=== PATIENT | male | born 1970 | race African-American/Black ===

== ENCOUNTER 2019-12-21 13:28 | Inpatient (IN) | payer OTHER ==
[2019-12-21] MEDS ORDERED: SODIUM CHLORIDE 0.9% 1,000 ML IV STA ×4 (13:35→14:55)
[2019-12-21] MEDS ORDERED: LORazepam 2 MG/ML INJ IV STA (13:35)
[2019-12-21] MEDS ORDERED: hydrALAZINE HCL 20 MG/ML 1 ML VIAL IVP STA ×2 (13:42→18:02)
[2019-12-21 14:21] LABS: Basophils # (A) 0.2 k/uL (0-0.2); Basophils % (A) 3 %; Eosinophils % (A) 1 %; HCT 47.2 % (39.0-53.0); HGB 15.9 gm/dL (13.0-17.5); Lymphocytes # (A) 0.8 k/uL (1.0-4.8); Lymphocytes % (A) 14 %; MCH 32.3 pg (25.0-35.0); MCHC 33.6 g/dL (31.0-37.0); MCV 96.2 fL (80.0-100.0); Mean Platelet Volume 8.4; Monocytes # (A) 0.4 k/uL (0-1.0); Monocytes % (A) 8 %; Neutrophils # (A) 3.9 k/uL (1.3-7.7); Neutrophils % (A) 71 %; Platelet Count 195 k/uL (150-450); RBC 4.91 m/uL (4.30-5.90); WBC 5.6 k/uL (3.8-10.6)
[2019-12-21 14:36] LABS: AST 235 U/L (17-59); African American GFR (CKD) >90 (>60 ml/min/1.73 sqM); Albumin 5.3 g/dL (3.5-5.0); Alcohol <10 mg/dL; Alkaline Phosphatase 101 U/L (38-126); Anion Gap 22 mmol/L; Blood Urea Nitrogen 10 mg/dL (9-20); Calcium 9.6 mg/dL (8.4-10.2); Carbon Dioxide 19 mmol/L (22-30); Chloride 93 mmol/L (98-107); Creatine Kinase 725 U/L (55-170); Glucose 198 mg/dL (74-99); Lipase 90 U/L (23-300); Magnesium 1.1 mg/dL (1.6-2.3); Non-African American GFR(CKD) >90 (>60 ml/min/1.73 sqM); Sodium 134 mmol/L (137-145); Total Bilirubin 1.1 mg/dL (0.2-1.3); Total Protein 9.8 g/dL (6.3-8.2)
--- NOTE | 2019-12-21 14:36 | CT ---
EXAMINATION TYPE: CT brain wo con DATE OF EXAM: 12/21/2019 HISTORY: Possible seizure CT DLP: 1099.4 mGycm. Automated Exposure Control for Dose Reduction was Utilized. TECHNIQUE: CT scan of the head is performed without contrast. COMPARISON: None. FINDINGS: There is no acute intracranial hemorrhage or midline shift identified. There is diffuse v entricular and sulcal prominence consistent with diffuse age-related cerebral atrophy. There is low- attenuation in the periventricular white matter consistent with chronic small vessel ischemic change. The globes are intact and the visualized sinuses are clear. The calvarium is intact. Some vascular calcification distal internal carotid arteries bilaterally is present. IMPRESSION: No acute intracranial hemorrhage or midline shift. There is mild diffuse age-related ce rebral atrophy and chronic small vessel ischemic change noted.
[2019-12-21 14:42] LABS: Amphetamine Screen,Urine Not Detected (NotDetected); Barbiturate Screen,Urine Not Detected (NotDetected); Benzodiazepines Screen,Urine Not Detected (NotDetected); Cocaine Screen,Urine Not Detected (NotDetected); Methadone Screen, Urine Not Detected (NotDetected); Opiate Screen,Urine Detected (NotDetected); Oxycodone Screen, Urine Not Detected (NotDetected); Phencyclidine Screen,Urine Not Detected (NotDetected); Tricyclic Antidepressant,Urine Not Detected (NotDetected); Urn Cannabinoid Scrn Not Detected (NotDetected)
--- NOTE | 2019-12-21 14:45 | ED ---
General Adult HPI - General Chief complaint: Syncope Stated complaint: High BP Time Seen by Provider: 12/21/19 13:28 Source: patient, EMS, RN notes reviewed, old records reviewed Mode of arrival: EMS Limitations: no limitations - History of Present Illness Initial comments: This is a 49-year-old male with a history of substance abuse history of hyperten ambika was brought in by EMS after he was apparently fell in the bathroom at a place using it. There is question whether in seizure though no seizure activity was witnessed. Patient complains of some mild lower back pain but denies any other injury no head neck pain no pain in his extremities no loss of function. He's not sure what exactly happened however. He does admit to using alcohol and possibly being in withdrawal at this time.patient is on blood pressure medication he ran out over a month ago he was found be tachycardic and hypertensive per paramedics. - Related Data Home Medications Medication Instructions Recorded Confirmed No Known Home Medications 12/21/19 12/21/19 Allergies Allergy/AdvReac Type Severity Reaction Status Date / Time lisinopril Allergy Swelling Verified 12/21/19 14:48 Review of Systems ROS Statement: Those systems with pertinent positive or pertinent negative responses have been documented in the HPI. ROS Other: All systems not noted in ROS Statement are negative. Past Medical History Past Medical History: Hyperlipidemia, Hypertension Additional Past Medical History / Comment(s): panceratitis History of Any Multi-Drug Resistant Organisms: None Reported Past Surgical History: No Surgical Hx Reported Past Anesthesia/Blood Transfusion Reactions: No Reported Reaction Past Psychological History: No Psychological Hx Reported Smoking Status: Current every day smoker Past Alcohol Use History: Abuse Past Drug Use History: None Reported - Past Family History Mother Family Medical History: Hypertension Brother(s) Family Medical History: Diabetes Mellitus, Hypertension Sister(s) Family Medical History: Hypertension General Exam - General Exam Comments Initial Comments: is a well-developed well-nourished awake alert oriented 3 male Zirconia Coma Scale of 15 Limitations: no limitations General appearance: alert, in no apparent distress Head exam: Present: normocephalic, normal inspection, other (small abrasion /laceration to the left of midlinechin just below the vermilion border the left lip. No active bleeding no through and through injury no suture repair indicated.) Eye exam: Present: normal appearance, PERRL, EOMI. Absent: scleral icterus, conjunctival injection, periorbital swelling ENT exam: Present: normal exam, mucous membranes moist Neck exam: Present: normal inspection, full ROM, other (no stridor JVD or bruits). Absent: tenderness, meningismus, lymphadenopathy Respiratory exam: Present: normal lung sounds bilaterally. Absent: respiratory distress, wheezes, rales, rhonchi, stridor Cardiovascular Exam: Present: normal rhythm, tachycardia, normal heart sounds. Absent: systolic murmur, diastolic murmur, rubs, gallop, clicks GI/Abdominal exam: Present: soft, normal bowel sounds. Absent: distended, tenderness, guarding, rebound, rigid Extremities exam: Present: normal inspection, full ROM, normal capillary refill. Absent: tenderness, pedal edema, joint swelling, calf tenderness Back exam: Present: normal inspection Neurological exam: Present: alert, oriented X3, CN II-XII intact Psychiatric exam: Present: normal affect, normal mood Skin exam: Present: warm, dry, intact, normal color. Absent: rash Course Vital Signs 12/21/19 12/21/19 12/21/19 13:30 14:50 15:31 Temperature 99.7 F H 99 F Pulse Rate 128 H 108 H 110 H Respiratory 18 18 18 Rate Blood Pressure 234/119 147/86 164/87 O2 Sat by Pulse 95 96 98 Oximetry - Reevaluation(s) Reevaluation #1: 12/21/19 15:38 The patient appears be resting comfortably on repeat evaluations. 12/21/19 15:39 patient's heart rate and blood pressure have improved EKG Findings - EKG Results: EKG: interpreted by [facility], sinus rhythm (sinus tachycardia rate 125. Interval 140 QRS duration 86 QT since QTC 334/482 possible left atrial enlargement LVH noted) Medical Decision Making - Lab Data Result diagrams: 12/21/19 13:46 12/21/19 13:46 Lab Results 12/21/19 12/21/19 12/21/19 Range/Units 13:46 13:46 13:46 WBC 5.6 (3.8-10.6) k/uL RBC 4.91 (4.30-5.90) m/uL Hgb 15.9 (13.0-17.5) gm/dL Hct 47.2 (39.0-53.0) % MCV 96.2 (80.0-100.0) fL MCH 32.3 (25.0-35.0) pg MCHC 33.6 (31.0-37.0) g/dL RDW 13.0 (11.5-15.5) % Plt Count 195 (150-450) k/uL MPV 8.4 Neutrophils % 71 % Lymphocytes % 14 % Monocytes % 8 % Eosinophils % 1 % Basophils % 3 % Neutrophils # 3.9 (1.3-7.7) k/uL Lymphocytes # 0.8 L (1.0-4.8) k/uL Monocytes # 0.4 (0-1.0) k/uL Eosinophils # 0.0 (0-0.7) k/uL Basophils # 0.2 (0-0.2) k/uL Sodium 134 L (137-145) mmol/L Potassium 3.9 (3.5-5.1) mmol/L Chloride 93 L (98-107) mmol/L Carbon Dioxide 19 L (22-30) mmol/L Anion Gap 22 mmol/L BUN 10 (9-20) mg/dL Creatinine 0.66 (0.66-1.25) mg/dL Est GFR (CKD-EPI)AfAm >90 (>60 ml/min/1.73 sqM) Est GFR (CKD-EPI)NonAf >90 (>60 ml/min/1.73 sqM) Glucose 198 H (74-99) mg/dL Plasma Lactic Acid Robert (0.7-2.0) mmol/L Calcium 9.6 (8.4-10.2) mg/dL Magnesium 1.1 L (1.6-2.3) mg/dL Total Bilirubin 1.1 (0.2-1.3) mg/dL AST 235 H (17-59) U/L ALT 108 H (4-49) U/L Alkaline Phosphatase 101 (38-126) U/L Creatine Kinase 725 H (55-170) U/L Troponin I (0.000-0.034) ng/mL Total Protein 9.8 H (6.3-8.2) g/dL Albumin 5.3 H (3.5-5.0) g/dL Lipase 90 (23-300) U/L Urine Opiates Screen Detected H (NotDetected) Ur Oxycodone Screen Not Detected (NotDetected) Urine Methadone Screen Not Detected (NotDetected) Ur Propoxyphene Screen Not Detected (NotDetected) Ur Barbiturates Screen Not Detected (NotDetected) U Tricyclic Antidepress Not Detected (NotDetected) Ur Phencyclidine Scrn Not Detected (NotDetected) Ur Amphetamines Screen Not Detected (NotDetected) U Methamphetamines Scrn Not Detected (NotDetected) U Benzodiazepines Scrn Not Detected (NotDetected) Urine Cocaine Screen Not Detected (NotDetected) U Marijuana (THC) Screen Not Detected (NotDetected) Serum Alcohol <10 mg/dL 12/21/19 12/21/19 Range/Units 13:46 13:46 WBC (3.8-10.6) k/uL RBC (4.30-5.90) m/uL Hgb (13.0-17.5) gm/dL Hct (39.0-53.0) % MCV (80.0-100.0) fL MCH (25.0-35.0) pg MCHC (31.0-37.0) g/dL RDW (11.5-15.5) % Plt Count (150-450) k/uL MPV Neutrophils % % Lymphocytes % % Monocytes % % Eosinophils % % Basophils % % Neutrophils # (1.3-7.7) k/uL Lymphocytes # (1.0-4.8) k/uL Monocytes # (0-1.0) k/uL Eosinophils # (0-0.7) k/uL Basophils # (0-0.2) k/uL Sodium (137-145) mmol/L Potassium (3.5-5.1) mmol/L Chloride (98-107) mmol/L Carbon Dioxide (22-30) mmol/L Anion Gap mmol/L BUN (9-20) mg/dL Creatinine (0.66-1.25) mg/dL Est GFR (CKD-EPI)AfAm (>60 ml/min/1.73 sqM) Est GFR (CKD-EPI)NonAf (>60 ml/min/1.73 sqM) Glucose (74-99) mg/dL Plasma Lactic Acid Robert 9.5 H* (0.7-2.0) mmol/L Calcium (8.4-10.2) mg/dL Magnesium (1.6-2.3) mg/dL Total Bilirubin (0.2-1.3) mg/dL AST (17-59) U/L ALT (4-49) U/L Alkaline Phosphatase (38-126) U/L Creatine Kinase (55-170) U/L Troponin I 0.013 (0.000-0.034) ng/mL Total Protein (6.3-8.2) g/dL Albumin (3.5-5.0) g/dL Lipase (23-300) U/L Urine Opiates Screen (NotDetected) Ur Oxycodone Screen (NotDetected) Urine Methadone Screen (NotDetected) Ur Propoxyphene Screen (NotDetected) Ur Barbiturates Screen (NotDetected) U Tricyclic Antidepress (NotDetected) Ur Phencyclidine Scrn (NotDetected) Ur Amphetamines Screen (NotDetected) U Methamphetamines Scrn (NotDetected) U Benzodiazepines Scrn (NotDetected) Urine Cocaine Screen (NotDetected) U Marijuana (THC) Screen (NotDetected) Serum Alcohol mg/dL Critical Care Time Critical Care Time: Yes Total Critical Care Time: 35 Critical Care Time: critical care time includes initial presentation with history physical labs x- rays discussed with paramedics and brought the patient revealed old charting his elbow multiple reevaluation the patient discussed with the main physician admiss ion orders and documentation of the above Disposition Clinical Impression: Seizure, Lactic acidosis, Rhabdomyolysis, Hypomagnesemia syndrome, Alcohol withdrawal, History of pancreatitis Disposition: ADMITTED IP TO THIS [facility] Condition: Fair Referrals: Nonstaff,Physician [Primary Care Provider] - 1-2 days
[2019-12-21 14:49] LABS: Potassium 3.9 mmol/L (3.5-5.1)
--- NOTE | 2019-12-21 14:52 | XR ---
EXAMINATION TYPE: XR chest 2V DATE OF EXAM: 12/21/2019 COMPARISON: NONE HISTORY: Fall injury with pain. Hypertension and syncope. TECHNIQUE: Frontal and lateral views of the chest are obtained. FINDINGS: There is no focal air space opacity, pleural effusion, or pneumothorax seen. The cardiac silhouette size is upper limits of normal. Overlying EKG leads. The osseous structures are intact. IMPRESSION: No acute cardiopulmonary process.
[2019-12-21 15:08] LABS: ALT 108 U/L (4-49)
[2019-12-21] MEDS ORDERED: SODIUM CHLORIDE 0.9% 1,000 ML with MVI, ADULT NO.4 WITH VIT K 10 ML, THIAMINE 100 MG, F... IV ONE ×4 (15:12)
[2019-12-21] MEDS: MAGNESIUM SULFATE-D5W PMX 1 GM in DEXTROSE/WATER 1 100ML.BAG IVPB SCH ×2 (15:29→17:48)
[2019-12-21] MEDS ORDERED: HYDROmorphone 1 MG/ML 1 ML SYRINGE IVP STA ×2 (15:37→18:55)
[2019-12-21] MEDS ORDERED: NALOXONE 0.4 MG/ML 1 ML VIAL IV PRN (15:44)
[2019-12-21] MEDS ORDERED: IBUPROFEN 400 MG TAB PO PRN (15:44)
--- NOTE | 2019-12-21 15:44 | ED ---
Medical Decision Making - Lab Data Result diagrams: 12/21/19 13:46 12/21/19 13:46 Lab Results 12/21/19 12/21/19 12/21/19 Range/Units 13:46 13:46 13:46 WBC 5.6 (3.8-10.6) k/uL RBC 4.91 (4.30-5.90) m/uL Hgb 15.9 (13.0-17.5) gm/dL Hct 47.2 (39.0-53.0) % MCV 96.2 (80.0-100.0) fL MCH 32.3 (25.0-35.0) pg MCHC 33.6 (31.0-37.0) g/dL RDW 13.0 (11.5-15.5) % Plt Count 195 (150-450) k/uL MPV 8.4 Neutrophils % 71 % Lymphocytes % 14 % Monocytes % 8 % Eosinophils % 1 % Basophils % 3 % Neutrophils # 3.9 (1.3-7.7) k/uL Lymphocytes # 0.8 L (1.0-4.8) k/uL Monocytes # 0.4 (0-1.0) k/uL Eosinophils # 0.0 (0-0.7) k/uL Basophils # 0.2 (0-0.2) k/uL Sodium 134 L (137-145) mmol/L Potassium 3.9 (3.5-5.1) mmol/L Chloride 93 L (98-107) mmol/L Carbon Dioxide 19 L (22-30) mmol/L Anion Gap 22 mmol/L BUN 10 (9-20) mg/dL Creatinine 0.66 (0.66-1.25) mg/dL Est GFR (CKD-EPI)AfAm >90 (>60 ml/min/1.73 sqM) Est GFR (CKD-EPI)NonAf >90 (>60 ml/min/1.73 sqM) Glucose 198 H (74-99) mg/dL Plasma Lactic Acid Robert (0.7-2.0) mmol/L Calcium 9.6 (8.4-10.2) mg/dL Magnesium 1.1 L (1.6-2.3) mg/dL Total Bilirubin 1.1 (0.2-1.3) mg/dL AST 235 H (17-59) U/L ALT 108 H (4-49) U/L Alkaline Phosphatase 101 (38-126) U/L Creatine Kinase 725 H (55-170) U/L Troponin I (0.000-0.034) ng/mL Total Protein 9.8 H (6.3-8.2) g/dL Albumin 5.3 H (3.5-5.0) g/dL Lipase 90 (23-300) U/L Urine Opiates Screen Detected H (NotDetected) Ur Oxycodone Screen Not Detected (NotDetected) Urine Methadone Screen Not Detected (NotDetected) Ur Propoxyphene Screen Not Detected (NotDetected) Ur Barbiturates Screen Not Detected (NotDetected) U Tricyclic Antidepress Not Detected (NotDetected) Ur Phencyclidine Scrn Not Detected (NotDetected) Ur Amphetamines Screen Not Detected (NotDetected) U Methamphetamines Scrn Not Detected (NotDetected) U Benzodiazepines Scrn Not Detected (NotDetected) Urine Cocaine Screen Not Detected (NotDetected) U Marijuana (THC) Screen Not Detected (NotDetected) Serum Alcohol <10 mg/dL 12/21/19 12/21/19 Range/Units 13:46 13:46 WBC (3.8-10.6) k/uL RBC (4.30-5.90) m/uL Hgb (13.0-17.5) gm/dL Hct (39.0-53.0) % MCV (80.0-100.0) fL MCH (25.0-35.0) pg MCHC (31.0-37.0) g/dL RDW (11.5-15.5) % Plt Count (150-450) k/uL MPV Neutrophils % % Lymphocytes % % Monocytes % % Eosinophils % % Basophils % % Neutrophils # (1.3-7.7) k/uL Lymphocytes # (1.0-4.8) k/uL Monocytes # (0-1.0) k/uL Eosinophils # (0-0.7) k/uL Basophils # (0-0.2) k/uL Sodium (137-145) mmol/L Potassium (3.5-5.1) mmol/L Chloride (98-107) mmol/L Carbon Dioxide (22-30) mmol/L Anion Gap mmol/L BUN (9-20) mg/dL Creatinine (0.66-1.25) mg/dL Est GFR (CKD-EPI)AfAm (>60 ml/min/1.73 sqM) Est GFR (CKD-EPI)NonAf (>60 ml/min/1.73 sqM) Glucose (74-99) mg/dL Plasma Lactic Acid Robert 9.5 H* (0.7-2.0) mmol/L Calcium (8.4-10.2) mg/dL Magnesium (1.6-2.3) mg/dL Total Bilirubin (0.2-1.3) mg/dL AST (17-59) U/L ALT (4-49) U/L Alkaline Phosphatase (38-126) U/L Creatine Kinase (55-170) U/L Troponin I 0.013 (0.000-0.034) ng/mL Total Protein (6.3-8.2) g/dL Albumin (3.5-5.0) g/dL Lipase (23-300) U/L Urine Opiates Screen (NotDetected) Ur Oxycodone Screen (NotDetected) Urine Methadone Screen (NotDetected) Ur Propoxyphene Screen (NotDetected) Ur Barbiturates Screen (NotDetected) U Tricyclic Antidepress (NotDetected) Ur Phencyclidine Scrn (NotDetected) Ur Amphetamines Screen (NotDetected) U Methamphetamines Scrn (NotDetected) U Benzodiazepines Scrn (NotDetected) Urine Cocaine Screen (NotDetected) U Marijuana (THC) Screen (NotDetected) Serum Alcohol mg/dL Disposition Clinical Impression: Seizure, Lactic acidosis, Rhabdomyolysis, Hypomagnesemia syndrome, Alcohol withdrawal, History of pancreatitis, Episode of hypertension, Dehydration, Tachycardia Disposition: ADMITTED IP TO THIS [facility] Condition: Fair Referrals: Nonstaff,Physician [Primary Care Provider] - 1-2 days Procedures - [place] Protocol (Time Out) Nurse: Prasanth Peguero
[2019-12-21] MEDS ORDERED: LORazepam 2 MG/ML INJ IV PRN ×2 (15:47)
[2019-12-21] MEDS ORDERED: THIAMINE 100 MG/ML 2 ML VIAL IM STA (15:47)
[2019-12-21] MEDS: SODIUM CHLORIDE 0.9% 1,000 ML IV SCH (17:49)
[2019-12-21] MEDS: THIAMINE 100 MG TAB PO SCH (17:56)
--- NOTE | 2019-12-21 18:14 | P.HPIM ---
History of Present Illness H&P Date: 12/21/19 Chief Complaint: Possible seizure The patient is a 49-year-old male with a history of substance abuse, alcohol use. The patient states he in [place] and is currently staying with his brother who lives in the area. The patient is a history of not drinking for the last 2 days because of abdominal pain. He states he has a history of pancreatitis however the medial provider note states that patient was apparently in the bathroom possibly using substances. There is concern for a seizure patient does not recall the event although he states he has had a his history of a seizure in the past related to alcohol withdrawal. The patient was brought to the emergency room was noted to have elevated CPKs, elevated lactic acid, transaminitis. The patient had a normal lipase. He was given a banana bag, IV fluids and hospitalized for further workup and management. Review of Systems Complete review of systems is done and negative other than stated above Past Medical History Past Medical History: Hyperlipidemia, Hypertension Additional Past Medical History / Comment(s): panceratitis History of Any Multi-Drug Resistant Organisms: None Reported Past Surgical History: No Surgical Hx Reported Past Anesthesia/Blood Transfusion Reactions: No Reported Reaction Past Psychological History: No Psychological Hx Reported Smoking Status: Current every day smoker Past Alcohol Use History: Abuse Past Drug Use History: None Reported - Past Family History Mother Family Medical History: Hypertension Brother(s) Family Medical History: Diabetes Mellitus, Hypertension Sister(s) Family Medical History: Hypertension Medications and Allergies Home Medications Medication Instructions Recorded Confirmed Type No Known Home Medications 12/21/19 12/21/19 History Allergies Allergy/AdvReac Type Severity Reaction Status Date / Time lisinopril Allergy Swelling Verified 12/21/19 14:48 Physical Exam Vitals: Vital Signs Temp Pulse Resp BP Pulse Ox 12/21/19 17:45 98.4 F 110 H 18 193/95 98 12/21/19 15:31 110 H 18 164/87 98 12/21/19 14:50 99 F 108 H 18 147/86 96 12/21/19 13:30 99.7 F H 128 H 18 234/119 95 Intake and Output 12/21/19 12/21/19 12/21/19 06:59 14:59 22:59 Other: Weight 68.039 kg - Constitutional General appearance: no acute distress - EENT Eyes: PERRLA - Respiratory Respiratory: bilateral: CTA - Cardiovascular Rhythm: regular - Gastrointestinal Mild tenderness to palpation in the right General gastrointestinal: normal bowel sounds - Integumentary Integumentary: normal - Neurologic Neurologic: CNII-XII intact - Musculoskeletal Musculoskeletal: strength equal bilaterally - Psychiatric Psychiatric: A&O x's 3, appropriate affect Results CBC & Chem 7: 12/21/19 13:46 12/21/19 13:46 Labs: Abnormal Lab Results - Last 24 Hours (Table) 12/21/19 12/21/19 12/21/19 Range/Units 13:46 13:46 13:46 Lymphocytes # 0.8 L (1.0-4.8) k/uL Sodium 134 L (137-145) mmol/L Chloride 93 L (98-107) mmol/L Carbon Dioxide 19 L (22-30) mmol/L Glucose 198 H (74-99) mg/dL Plasma Lactic Acid Robert (0.7-2.0) mmol/L Magnesium 1.1 L (1.6-2.3) mg/dL AST 235 H (17-59) U/L ALT 108 H (4-49) U/L Creatine Kinase 725 H (55-170) U/L Total Protein 9.8 H (6.3-8.2) g/dL Albumin 5.3 H (3.5-5.0) g/dL Urine Opiates Screen Detected H (NotDetected) 12/21/19 Range/Units 13:46 Lymphocytes # (1.0-4.8) k/uL Sodium (137-145) mmol/L Chloride (98-107) mmol/L Carbon Dioxide (22-30) mmol/L Glucose (74-99) mg/dL Plasma Lactic Acid Robert 9.5 H* (0.7-2.0) mmol/L Magnesium (1.6-2.3) mg/dL AST (17-59) U/L ALT (4-49) U/L Creatine Kinase (55-170) U/L Total Protein (6.3-8.2) g/dL Albumin (3.5-5.0) g/dL Urine Opiates Screen (NotDetected) CT scan - chest: report reviewed CT Scan - head: report reviewed Assessment and Plan (1) Seizure Narrative/Plan: Likely secondary to alcohol withdrawal, precautions, and neurology has been consulted Current Visit: Yes Status: Acute Code(s): R56.9 - UNSPECIFIED CONVULSIONS SNOMED Code(s): 24286828 (2) Lactic acidosis Narrative/Plan: No evidence of sepsis likely secondary to seizure we'll give IV hydration Current Visit: Yes Status: Acute Code(s): E87.2 - ACIDOSIS SNOMED Code(s): 16831724 (3) Rhabdomyolysis Narrative/Plan: Continue to trend his CPKs IV fluids Current Visit: Yes Status: Acute Code(s): M62.82 - RHABDOMYOLYSIS SNOMED Code(s): 610696489 (4) Alcohol withdrawal Narrative/Plan: Monitor for alcohol withdrawal, benzos when necessary, patient received banana bag, repeat electrolytes Current Visit: Yes Status: Acute Code(s): F10.239 - ALCOHOL DEPENDENCE WITH WITHDRAWAL, UNSPECIFIED SNOMED Code(s): 879894863 (5) History of pancreatitis Narrative/Plan: The patient has a normal lipase at this time Current Visit: Yes Status: Acute Code(s): Z87.19 - PERSONAL HISTORY OF OTHER DISEASES OF THE DIGESTIVE SYSTEM SNOMED Code(s): 93695882388625 (6) Hypomagnesemia syndrome Narrative/Plan: Continue to replete and monitor secondary to alcohol abuse Current Visit: Yes Status: Acute Code(s): E83.42 - HYPOMAGNESEMIA SNOMED Code(s): 061382037
[2019-12-21] MEDS: LORazepam 2 MG/ML INJ IV PRN ×2 (19:26→23:35)
[2019-12-21] MEDS: cloNIDine HCL 0.1 MG TAB PO SCH (21:21)
[2019-12-21] MEDS ORDERED: diphenhydrAMINE 25 MG CAP PO STA (21:27)
[2019-12-21] MEDS: HYDROmorphone 1 MG/ML 1 ML SYRINGE IVP PRN (22:51)
[2019-12-21] MEDS ORDERED: cloNIDine HCL 0.2 MG TAB PO STA (23:44)
[2019-12-22] MEDS: HYDROmorphone 1 MG/ML 1 ML SYRINGE IVP PRN ×4 (03:07→23:13)
[2019-12-22] MEDS: SODIUM CHLORIDE 0.9% 1,000 ML IV SCH ×2 (03:09→06:21)
[2019-12-22] MEDS: THIAMINE 100 MG TAB PO SCH ×2 (06:21→17:09)
[2019-12-22] MEDS: cloNIDine HCL 0.1 MG TAB PO SCH ×2 (08:27→20:37)
[2019-12-22 09:20] LABS: ALT 71 U/L (4-49); AST 101 U/L (17-59); African American GFR (CKD) >90 (>60 ml/min/1.73 sqM); Alkaline Phosphatase 64 U/L (38-126); Anion Gap 5 mmol/L; Blood Urea Nitrogen 11 mg/dL (9-20); Calcium 8.3 mg/dL (8.4-10.2); Carbon Dioxide 30 mmol/L (22-30); Chloride 99 mmol/L (98-107); Creatine Kinase 601 U/L (55-170); Glucose 137 mg/dL (74-99); Magnesium 1.7 mg/dL (1.6-2.3); Non-African American GFR(CKD) >90 (>60 ml/min/1.73 sqM); Potassium 3.4 mmol/L (3.5-5.1); Sodium 134 mmol/L (137-145); Total Protein 7.4 g/dL (6.3-8.2)
[2019-12-22 09:36] LABS: Basophils % (A) 1 %; Eosinophils # (A) 0.1 k/uL (0-0.7); Eosinophils % (A) 3 %; HCT 37.3 % (39.0-53.0); Lymphocytes # (A) 0.8 k/uL (1.0-4.8); Lymphocytes % (A) 20 %; MCH 32.8 pg (25.0-35.0); MCHC 34.2 g/dL (31.0-37.0); MCV 96.1 fL (80.0-100.0); Monocytes # (A) 0.3 k/uL (0-1.0); Monocytes % (A) 6 %; Neutrophils # (A) 2.7 k/uL (1.3-7.7); Neutrophils % (A) 67 %; Platelet Count 139 k/uL (150-450); RBC 3.89 m/uL (4.30-5.90); RDW 13.1 % (11.5-15.5); WBC 4.1 k/uL (3.8-10.6)
[2019-12-22 09:38] LABS: HGB 12.8 gm/dL (13.0-17.5)
--- NOTE | 2019-12-22 12:17 | P.CNNES ---
History of Present Illness Consult date: 12/22/19 Requesting physician: Timoteo Garvin Reason for Consult: Seizure History of Present Illness: Patient is a 49-year-old male came to the hospital yesterday at 1:28 PM for possible seizure. Patient states that he fell, collapsed and had a seizure witnessed by his brother and son. Patient does not remember any details when he woke up, he was in the ambulance. Patient states that he hit right side of the chest and it hurts. He is asking for "Dilaudid" for his right chest pain from the fall. Patient states that he has a seizure couple months ago as well. He did not seek medical attention. Patient's vital signs on arrival was blood pressure 234/119, pulse rate [address] head showed no acute intracranial hemorrhage or midline shift. There is mild diffuse age-related cerebral atrophy and chronic small vessel ischemic change. EKG shows sinus tachycardia, possible left atrial enlargement. Left-ventricular hypertrophy with repolarization abnormality. Chest x-ray normal, CBC normal, Chem-20 with sodium 134 normal renal functions, AST 235, ALT 108, CPK 725. Troponin is negative. Urine drug screen positive for opiate and blood alcohol level negative. Patient states that he drinks 4-5 beers per day since his fianc 2 months ago. He also sometimes drinks 2-3, 1/2 pint of liquor, either vodka or tequila. Patient states sometimes he does not drink in a week and sometimes dri nks more. Review of Systems Complains of right-sided lower chest pain. Denies any abdominal pain nausea vomiting diarrhea. Denies any double vision loss of vision hearing loss. Past Medical History Past Medical History: Hyperlipidemia, Hypertension Additional Past Medical History / Comment(s): panceratitis History of Any Multi-Drug Resistant Organisms: None Reported Past Surgical History: No Surgical Hx Reported Past Anesthesia/Blood Transfusion Reactions: No Reported Reaction Past Psychological History: No Psychological Hx Reported Smoking Status: Current every day smoker Past Alcohol Use History: Abuse Additional Past Alcohol Use History / Comment(s): Had not been drinking any alcohol, but the last few days he has been drinking several beers. Past Drug Use History: None Reported - Past Family History Mother Family Medical History: Hypertension Brother(s) Family Medical History: Diabetes Mellitus, Hypertension Sister(s) Family Medical History: Hypertension Medications and Allergies Home Medications Medication Instructions Recorded Confirmed Type No Known Home Medications 12/21/19 12/21/19 History Allergies Allergy/AdvReac Type Severity Reaction Status Date / Time lisinopril Allergy Swelling Verified 12/21/19 14:48 Physical Examination - Vital Signs Vital Signs: Vital Signs Temp Pulse Pulse Resp BP BP BP 12/22/19 08:20 98.2 F 96 18 178/84 12/22/19 03:33 98 18 12/22/19 03:32 98.3 F 98 18 145/98 12/22/19 00:53 184/89 12/21/19 23:40 98.0 F 98 18 188/102 207/87 12/21/19 23:07 97 18 12/21/19 20:59 98.2 F 97 18 157/89 12/21/19 20:55 97 18 12/21/19 19:28 98 F 110 H 18 178/78 12/21/19 17:45 98.4 F 110 H 18 193/95 12/21/19 15:31 110 H 18 164/87 12/21/19 14:50 99 F 108 H 18 147/86 12/21/19 13:30 99.7 F H 128 H 18 234/119 Pulse Ox 12/22/19 08:20 100 12/22/19 03:33 12/22/19 03:32 99 12/22/19 00:53 12/21/19 23:40 99 12/21/19 23:07 12/21/19 20:59 96 12/21/19 20:55 12/21/19 19:28 98 12/21/19 17:45 98 12/21/19 15:31 98 12/21/19 14:50 96 12/21/19 13:30 95 Intake and Output 12/21/19 12/22/19 12/22/19 22:59 06:59 14:59 Intake Total 1040 Balance 1040 Intake: Intake, IV Titration 1040 Amount Sodium Chloride 0.9% 1, 1040 000 ml @ 130 mls/hr IV . Q7H42M [facility] Rx#:[id number] Other: Voiding Method Urinal Toilet # Voids 1 1 Weight 68.039 kg 71.7 kg On examination patient is a middle aged Afro-[place] male, in no distress. He is alert and awake. Speech and language functions are normal. Patient speech is somewhat difficult to understand probably because of accent, no definitive dysarthria. On cranial examination pupils are round and reactive to light, visual lay are full, extraocular muscles are intact face is symmetrical but doesn't protrudes to the midline. Palatal elevation sensation normal hearing and shoulder shrug normal. On muscle strength testing there is no pronator drift and the strength is normal in arms and legs reflexes are 1+ and plantars downgoing sensory touch is equal. No ataxia for [id number] testing tone and bulk of muscles normal. Gait deferred. No bruit or murmur, peripheral pulses present. Results - Laboratory Findings CBC and BMP: 12/22/19 07:59 12/22/19 07:59 Abnormal Lab Findings: Abnormal Labs 12/21/19 12/21/19 12/21/19 13:46 13:46 13:46 Lymphocytes # 0.8 L Sodium 134 L Chloride 93 L Carbon Dioxide 19 L Glucose 198 H Plasma Lactic Acid Robert Magnesium 1.1 L AST 235 H ALT 108 H Creatine Kinase 725 H Total Protein 9.8 H Albumin 5.3 H Urine Opiates Screen Detected H 12/21/19 13:46 Lymphocytes # Sodium Chloride Carbon Dioxide Glucose Plasma Lactic Acid Robert 9.5 H* Magnesium AST ALT Creatine Kinase Total Protein Albumin Urine Opiates Screen Assessment and Plan Assessment: * Syncopal spell versus seizure. * Alcoholism. Plan: * EEG to rule out any epileptiform activity. This is the second syncopal spell versus seizure. * Recommend abstain from alcoholism. * Patient informed of [place] state law of no driving unless seizure free for 6 months, climbing ladders, operate dangerous machinery or unsupervised swimming. * Neurologically clear, if EEG comes back negative. Addendum: EEG revealed slightly suppressed background with excessive low voltage fast frequency beta suggestive of medication effect. No epileptiform activity was seen. No indication for antiepileptic medication. Neurologically clear.
--- NOTE | 2019-12-22 14:55 | EEG ---
ELECTROENCEPHALOGRAM REPORT DATE OF SERVICE: 12/22/2019 PREAMBLE: This is a 49-year-old male with a seizure versus syncope. This study is performed to evaluate for any epileptiform activity. Patient has alcoholism. EEG FINDINGS: This is a 21 channel routine EEG recording utilizing 10/20 international system with referential and bipolar montages. Background consists of a well-developed, poorly regulated, somewhat suppressed with excessive low-voltage fast frequency beta activity seen throughout the recording. The background seems to be slightly reactive to eye opening and closing. Photic driving response was not seen. Different stages of sleep were not seen. No focal or generalized epileptiform activity was seen. EKG channel lead revealed no obvious arrhythmia. IMPRESSION: This is an abnormal EEG due to slightly suppressed background with excessive low- voltage fast frequency beta activity. This is suggestive of medication effect. No epileptiform activity was seen. MMERROLL / IJN: [id number] /
[2019-12-22] MEDS: LORazepam 2 MG/ML INJ IV PRN ×2 (16:05→22:27)
[2019-12-22] MEDS: hydrALAZINE HCL 20 MG/ML 1 ML VIAL IVP PRN (17:09)
--- NOTE | 2019-12-22 17:24 | P.PN ---
Subjective Progress Note Date: 12/22/19 Principal diagnosis: unsteady gait Objective - Vital Signs Vital signs: Vital Signs Temp 98.2 F 12/22/19 16:00 Pulse 95 12/22/19 16:00 Resp 18 12/22/19 16:00 BP 209/103 12/22/19 16:00 Pulse Ox 99 12/22/19 16:00 Intake & Output 12/21/19 12/22/19 12/22/19 18:59 06:59 18:59 Intake Total 1040 560 Balance 1040 560 Weight 68.039 kg 71.7 kg Intake: Intake, IV Titration 1040 260 Amount Sodium Chloride 0.9% 1, 1040 260 000 ml @ 130 mls/hr IV . Q7H42M [facility] Rx#:[id number] Oral 300 Other: Voiding Method Toilet Toilet # Voids 1 1 - Constitutional General appearance: Present: no acute distress - Respiratory Respiratory: bilateral: CTA - Cardiovascular Rhythm: regular - Gastrointestinal General gastrointestinal: Present: normal bowel sounds - Integumentary Integumentary: Present: normal - Musculoskeletal Musculoskeletal Comment(s): unsteady gait - Psychiatric Psychiatric Comment(s): fair insight - Labs CBC & Chem 7: 12/22/19 07:59 12/22/19 07:59 Labs: Abnormal Lab Results - Last 24 Hours (Table) 12/22/19 12/22/19 Range/Units 07:59 07:59 RBC 3.89 L (4.30-5.90) m/uL Hgb 12.8 L D (13.0-17.5) gm/dL Hct 37.3 L (39.0-53.0) % Plt Count 139 L (150-450) k/uL Lymphocytes # 0.8 L (1.0-4.8) k/uL Sodium 134 L (137-145) mmol/L Potassium 3.4 L (3.5-5.1) mmol/L Creatinine 0.64 L (0.66-1.25) mg/dL Glucose 137 H (74-99) mg/dL Calcium 8.3 L (8.4-10.2) mg/dL AST 101 H (17-59) U/L ALT 71 H (4-49) U/L Creatine Kinase 601 H (55-170) U/L Assessment and Plan (1) Seizure Narrative/Plan: cleared by neurology negative EEG Current Visit: Yes Status: Acute Code(s): R56.9 - UNSPECIFIED CONVULSIONS SNOMED Code(s): 02760843 (2) Lactic acidosis Narrative/Plan: resolved secondary to dehydration Current Visit: Yes Status: Acute Code(s): E87.2 - ACIDOSIS SNOMED Code(s): 19833603 (3) Rhabdomyolysis Narrative/Plan: continue to trend Current Visit: Yes Status: Acute Code(s): M62.82 - RHABDOMYOLYSIS SNOMED Code(s): 305933313 (4) Alcohol withdrawal Narrative/Plan: continue benzodiazipine, still tremoring Current Visit: Yes Status: Acute Code(s): F10.239 - ALCOHOL DEPENDENCE WITH WITHDRAWAL, UNSPECIFIED SNOMED Code(s): 890113793 (5) History of pancreatitis Current Visit: Yes Status: Acute Code(s): Z87.19 - PERSONAL HISTORY OF OTHER DISEASES OF THE DIGESTIVE SYSTEM SNOMED Code(s): 41921845960140 (6) Hypomagnesemia syndrome Narrative/Plan: replete as needed Current Visit: Yes Status: Acute Code(s): E83.42 - HYPOMAGNESEMIA SNOMED Code(s): 825369882
[2019-12-22] MEDS ORDERED: POTASSIUM CHLORIDE 20 MEQ in WATER FOR INJECTION 1 100ML.BAG IVPB STA (17:25)
[2019-12-22] MEDS ORDERED: HALOPERIDOL LACTATE 5 MG/ML 1 ML VIAL IM STA (22:43)
[2019-12-23 00:19] VITALS: TEMP 98.1
[2019-12-23] MEDS: THIAMINE 100 MG TAB PO SCH (06:29)
[2019-12-23] MEDS ORDERED: DEXTROSE 5%-0.45% NACL 1,000 ML IV SCH (08:15)
[2019-12-23 08:50] LABS: African American GFR (CKD) >90 (>60 ml/min/1.73 sqM); Anion Gap 11 mmol/L; Blood Urea Nitrogen 9 mg/dL (9-20); Calcium 9.4 mg/dL (8.4-10.2); Carbon Dioxide 26 mmol/L (22-30); Chloride 102 mmol/L (98-107); Creatine Kinase 781 U/L (55-170); Glucose 110 mg/dL (74-99); Non-African American GFR(CKD) >90 (>60 ml/min/1.73 sqM); Potassium 3.2 mmol/L (3.5-5.1); Sodium 139 mmol/L (137-145)
[2019-12-23] MEDS ORDERED: amLODIPine 5 MG TAB PO SCH (09:00)
[2019-12-23] MEDS: cloNIDine HCL 0.1 MG TAB PO SCH (09:29)
[2019-12-23 09:46] VITALS: RESP 18
[2019-12-23 09:48] VITALS: PULSE 107
[2019-12-23] MEDS: hydrALAZINE HCL 20 MG/ML 1 ML VIAL IVP PRN (09:50)
[2019-12-23 10:45] VITALS: BP 171/94
--- NOTE | 2019-12-23 12:34 | P.DS ---
Providers Date of admission: 12/21/19 15:44 Expected date of discharge: 12/23/19 Attending physician: Tiffanie Mendoza DO Consults: 12/21/19 15:47 Consult Physician Routine Consulting Provider: Johnathan Quintana Consult Reason/Comments: seizure Do you want consulting provider notified?: Yes Primary care physician: Physician Nonstaff Hospital Course: Patient left the hospital AGAINST MEDICAL ADVICE. His blood pressure this morning was 212/122. He was counseled extensively by me against leaving the hospital. I explained to him the risk of his condition deteriorating and the p ossibility of having a stroke or even dying. He verbalizes understanding of the risk. He signed AGAINST MEDICAL ADVICE paperwork and left without waiting for his prescriptions. This is a 49-year-old male with past medical history noted below significant for heavy alcohol abuse who presented to the hospital with a seizure episode. Patient was evaluated and admitted for further management of his medical problems noted below. 1. Alcohol withdrawal seizure 2. Alcohol withdrawal 3. Rhabdomyolysis 4. Lactic acidosis 5. Hypertensive urgency 6. Essential hypertension, not controlled secondary to noncompliance 7. Hypomagnesemia, replaced 8. Heavy alcohol abuse For further details about this hospitalization please refer to the electronic chart. Patient Condition at Discharge: Poor Plan - Discharge Summary Discharge Rx Participant: No New Discharge Prescriptions: No Action No Known Home Medications Discharge Medication List No Known Home Medications 12/21/19 [History] Follow up Appointment(s)/Referral(s): Nonstaff,Physician [Primary Care Provider] - 1-2 days Discharge Disposition: HOME SELF-CARE
== END 2019-12-23 11:55 | disposition left against medical advice (07) | DRG 894 ==
LOC: EC 13:28 → 3SCARD 15:44
PROVIDERS: ADMIT Internal Medicine; ATTEND Internal Medicine
DX: F10.239 Alcohol dependence with withdrawal, unspecified (principal); E87.2 Acidosis; M62.82 Rhabdomyolysis; E78.5 Hyperlipidemia, unspecified; E83.42 Hypomagnesemia; F17.200 Nicotine dependence, unspecified, uncomplicated; R56.9 Unspecified convulsions; I16.0 Hypertensive urgency; I11.9 Hypertensive heart disease without heart failure; G31.9 Degenerative disease of nervous system, unspecified; Z91.19 Patient's noncompliance with other medical treatment and regimen; Z83.3 Family history of diabetes mellitus; Z82.49 Family history of ischemic heart disease and other diseases of the circulatory system; Z88.8 Allergy status to other drugs, medicaments and biological substances
CPT/HCPCS: 36415; 70450; 71046; 80048; 80053; 80306; 80320; 82550; 83605; 83690; 83735; 84484; 85025; 93005; 95816; 96361; 96365; 96366; 96372; 96375; 96376; 99291

== ENCOUNTER 2020-06-24 02:02 | Emergency (ER) | payer OTHER ==
[2020-06-24] MEDS ORDERED: SODIUM CHLORIDE 0.9% 500 ML 500 ML IV STA (02:21)
[2020-06-24 02:37] LABS: Basophils # (A) 0.1 k/uL (0-0.2); Basophils % (A) 1 %; Eosinophils # (A) 0.1 k/uL (0-0.7); Eosinophils % (A) 1 %; HCT 46.3 % (39.0-53.0); HGB 16.4 gm/dL (13.0-17.5); Lymphocytes # (A) 0.5 k/uL (1.0-4.8); Lymphocytes % (A) 11 %; MCHC 35.4 g/dL (31.0-37.0); MCV 96.2 fL (80.0-100.0); Mean Platelet Volume 13.3; Monocytes # (A) 0.3 k/uL (0-1.0); Monocytes % (A) 6 %; Neutrophils # (A) 3.8 k/uL (1.3-7.7); Neutrophils % (A) 80 %; Platelet Count 125 k/uL (150-450); RBC 4.82 m/uL (4.30-5.90); RDW 12.3 % (11.5-15.5); WBC 4.8 k/uL (3.8-10.6)
[2020-06-24 03:57] LABS: ALT 81 U/L (4-49); African American GFR (CKD) >90 (>60 ml/min/1.73 sqM); Albumin 4.7 g/dL (3.5-5.0); Alcohol <10 mg/dL; Anion Gap 20 mmol/L; Blood Urea Nitrogen 8 mg/dL (9-20); Calcium 8.6 mg/dL (8.4-10.2); Carbon Dioxide 20 mmol/L (22-30); Chloride 95 mmol/L (98-107); Glucose 134 mg/dL (74-99); Non-African American GFR(CKD) >90 (>60 ml/min/1.73 sqM); Sodium 135 mmol/L (137-145); Total Bilirubin 1.3 mg/dL (0.2-1.3); Total Protein 8.6 g/dL (6.3-8.2)
[2020-06-24 04:06] VITALS: TEMP 99.1
[2020-06-24 04:26] LABS: AST 260 U/L (17-59); Alkaline Phosphatase 96 U/L (38-126); Potassium 3.7 mmol/L (3.5-5.1)
--- NOTE | 2020-06-24 04:49 | ED ---
Seizure HPI - General Chief Complaint: Seizure Stated Complaint: Seizures Time Seen by Provider: 06/24/20 02:05 Source: patient, EMS Mode of arrival: EMS Limitations: no limitations - History of Present Illness Initial Comments: This patient is 50-year-old man with history of seizure disorder, presenting after having had two generalized seizures. The patient denies injury as a result of the seizures. He denies any new neurologic symptoms. Patient triage vitals also find him hypertensive and patient admits to not taking antihypertensives currently either. MD Complaint: seizure -: minutes(s) Description of Episode: loss of consciousness, tonic-clonic movement -: minutes(s) Witnessed: yes - by bystander Trauma: No Seizure History: known seizure disorder, history of non-compliance with treatment Place: home Possible Precipitating Event: none Associated Symptoms: denies other symptoms - Related Data Home Medications Medication Instructions Recorded Confirmed No Known Home Medications 12/21/19 12/21/19 Allergies Allergy/AdvReac Type Severity Reaction Status Date / Time lisinopril Allergy Swelling Verified 12/21/19 14:48 Review of Systems ROS Statement: Those systems with pertinent positive or pertinent negative responses have been documented in the HPI. ROS Other: All systems not noted in ROS Statement are negative. Constitutional: Denies: fever, chills, weakness Eyes: Denies: eye pain, vision change Respiratory: Denies: cough, dyspnea Cardiovascular: Denies: chest pain, palpitations, edema Gastrointestinal: Denies: abdominal pain, vomiting, diarrhea Genitourinary: Denies: dysuria, hematuria Musculoskeletal: Denies: back pain Skin: Denies: rash Neurological: Denies: headache, weakness, numbness Past Medical History Past Medical History: Hyperlipidemia, Hypertension Additional Past Medical History / Comment(s): panceratitis History of Any Multi-Drug Resistant Organisms: None Reported Past Surgical History: No Surgical Hx Reported Past Anesthesia/Blood Transfusion Reactions: No Reported Reaction Past Psychological History: No Psychological Hx Reported Smoking Status: Current every day smoker Past Drug Use History: None Reported - Past Family History Mother Family Medical History: Hypertension Brother(s) Family Medical History: Diabetes Mellitus, Hypertension Sister(s) Family Medical History: Hypertension General Exam Limitations: no limitations General appearance: alert, in no apparent distress Head exam: Present: atraumatic, normocephalic Eye exam: Present: normal appearance, PERRL, EOMI. Absent: scleral icterus, conjunctival injection, nystagmus ENT exam: Present: normal oropharynx Neck exam: Present: normal inspection, full ROM. Absent: tenderness Respiratory exam: Present: normal lung sounds bilaterally. Absent: respiratory distress, wheezes, rales, rhonchi, stridor, chest wall tenderness Cardiovascular Exam: Present: normal rhythm, tachycardia, normal heart sounds. Absent: systolic murmur, diastolic murmur, rubs, gallop GI/Abdominal exam: Present: soft. Absent: distended, tenderness, guarding, rebound, mass Extremities exam: Present: normal inspection, normal capillary refill. Absent: pedal edema Back exam: Present: normal inspection. Absent: vertebral tenderness Neurological exam: Present: alert, oriented X3, CN II-XII intact. Absent: motor sensory deficit Skin exam: Present: warm, dry, intact, normal color. Absent: rash Course Vital Signs 06/24/20 06/24/20 06/24/20 02:04 03:02 04:05 Temperature 99.5 F 99.1 F Pulse Rate 133 H 112 H 112 H Respiratory 20 18 20 Rate Blood Pressure 204/126 195/106 183/104 O2 Sat by Pulse 97 95 99 Oximetry 06/24/20 05:07 Temperature Pulse Rate 115 H Respiratory 18 Rate Blood Pressure 185/102 O2 Sat by Pulse 95 Oximetry Medical Decision Making - Medical Decision Making Patient is 50-year-old man with history of seizure disorder, who has not been compliant with medical regimen. He has returned to baseline. Patient to follow with neurology and resume medical regimen. Discussed return parameters. - Lab Data Result diagrams: 06/24/20 02:28 06/24/20 03:21 Lab Results 06/24/20 06/24/20 Range/Units 02:28 03:21 WBC 4.8 (3.8-10.6) k/uL RBC 4.82 (4.30-5.90) m/uL Hgb 16.4 (13.0-17.5) gm/dL Hct 46.3 (39.0-53.0) % MCV 96.2 (80.0-100.0) fL MCH 34.0 (25.0-35.0) pg MCHC 35.4 (31.0-37.0) g/dL RDW 12.3 (11.5-15.5) % Plt Count 125 L (150-450) k/uL MPV 13.3 Neutrophils % 80 % Lymphocytes % 11 % Monocytes % 6 % Eosinophils % 1 % Basophils % 1 % Neutrophils # 3.8 (1.3-7.7) k/uL Lymphocytes # 0.5 L (1.0-4.8) k/uL Monocytes # 0.3 (0-1.0) k/uL Eosinophils # 0.1 (0-0.7) k/uL Basophils # 0.1 (0-0.2) k/uL Sodium 135 L (137-145) mmol/L Potassium 3.7 (3.5-5.1) mmol/L Chloride 95 L (98-107) mmol/L Carbon Dioxide 20 L (22-30) mmol/L Anion Gap 20 mmol/L BUN 8 L (9-20) mg/dL Creatinine 0.57 L (0.66-1.25) mg/dL Est GFR (CKD-EPI)AfAm >90 (>60 ml/min/1.73 sqM) Est GFR (CKD-EPI)NonAf >90 (>60 ml/min/1.73 sqM) Glucose 134 H (74-99) mg/dL Calcium 8.6 (8.4-10.2) mg/dL Total Bilirubin 1.3 (0.2-1.3) mg/dL AST 260 H (17-59) U/L ALT 81 H (4-49) U/L Alkaline Phosphatase 96 (38-126) U/L Total Protein 8.6 H (6.3-8.2) g/dL Albumin 4.7 (3.5-5.0) g/dL Serum Alcohol <10 mg/dL - EKG Data -: EKG Interpreted by Ct EKG shows normal: sinus rhythm, axis (Normal), intervals (Normal), ST-T waves Rate: tachycardia (Rate 118 bpm) Disposition Clinical Impression: Seizure Disposition: HOME SELF-CARE Condition: Good Instructions (If sedation given, give patient instructions): Recurrent Seizures in Adults (ED) Additional Instructions: As we discussed, follow-up with your physician 3-5 days to have your liver tests rechecked. Return here if there is any problem with scheduling. Is patient prescribed a controlled substance at d/c from ED?: No Referrals: None,Stated [Primary Care Provider] - 1-2 days
[2020-06-24 05:08] VITALS: BP 185/102; PULSE 115; RESP 18
== END 2020-06-24 05:35 | disposition home or self-care (01) ==
LOC: EC 02:02
DX: R56.9 Unspecified convulsions (principal); E78.5 Hyperlipidemia, unspecified; F17.200 Nicotine dependence, unspecified, uncomplicated; I10 Essential (primary) hypertension
CPT/HCPCS: 36415; 93005; 80053; 85025; 99284; G0480; 80320

== ENCOUNTER → 2021-11-25 | Outpatient (CLI) | payer OTHER ==
--- NOTE | 2021-11-25 13:02 | CA ---
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, organ involvement unspecified ICD-9 Codes: Rhythm: Patient History: Cardiac Medications: SEE ATTACHED LIST Medications in past 24 hours: Contrast: N/A Stress Results Protocol: Srikanth Total dose(mL): Exercise Duration (min:sec): 2.[address] Depression (mm): Angina Score: Jasso Score: METS: 3.6 Resting HR: 102 Resting BP: 126 / 60 Peak HR: 159 Peak BP: 210 / 73 Max Predicted HR: 168 95 % Max Predicted HR Target HR: 143 Double Product: 16134 Stress Summary: BP Response: Reason for Termination: PT SOB Cardiac Symptoms: SOB ECG Analysis Resting ECG: Stress ECG: Arrhythmia: Echo Analysis Resting Echo: Peak Echo Analysis: MEASUREMENTS (Male/Female) Normal Values CONCLUSIONS Patient underwent exercise stress echo with a Srikanth protocol treadmill stress test. Patient exercised into Stage 1 for a total of 2 minutes and 30 seconds reaching a total of 3.6 METS. Patient's maximum heart rate was 159 which represented 94% age- predicted maximum heart rate. Stress EKG portion: At baseline patient's EKG showed normal sinus rhythm, normal axis, poor R-wave progression, diffuse ST depressions in the inferior and lateral leads. At peak exercise, EKG showed no significant change from baseline. Stress echo portion: 2-D echocardiogram was performed in the parasternal long, personal short, apical 2 and apical four-chamber views at rest, peak exercise and in recovery. At baseline, echocardiogram showed left ventricular ejection fraction 55-60% without wall motion abnormalities. With peak exercise, echocardiogram shows improvement in left ventricular ejection fraction, increase contractility, decrease in left ventricular end systolic dimension without wall motion abnormalities consistent with a normal response to exercise. Conclusions: 1. Normal echo response to exercise without evidence of inducible ischemia. 2. Nonspecific EKG portion second baseline EKG abnormalities 3. Poor exercise capacity. 4. Normal left ventricular ejection fraction 55-60% Dr. Eliud Kasper DO (Electronically Signed) Final Date: 25 November 2021 13:01
== END | disposition home or self-care (01) ==
LOC: RADNMMAIN 09:42
PROVIDERS: ATTEND Internal Medicine
DX: M33.20 Polymyositis, organ involvement unspecified (principal); R00.0 Tachycardia, unspecified; I11.9 Hypertensive heart disease without heart failure
CPT/HCPCS: 93351

== ENCOUNTER → 2021-12-30 | Outpatient (CLI) | payer OTHER ==
--- NOTE | 2021-12-30 19:32 | US ---
EXAMINATION TYPE: US carotid duplex BILAT DATE OF EXAM: 12/30/2021 COMPARISON: NONE CLINICAL HISTORY: 51-year-old male I65.21 carotid stenosis. Stenosis, dizzy TECHNIQUE: Carotid duplex ultrasound examination. Indirect Doppler criteria was utilized. FINDINGS: EXAM MEASUREMENTS: RIGHT: Peak Systolic Velocity (PSV) cm/sec ----- Right CCA: 152 ----- Right ICA: 155 ----- Right ECA: 155 ICA/CCA ratio: 1.0 RIGHT: End Diastole cm/sec ----- Right CCA: 30.4 ----- Right ICA: 28.4 ----- Right ECA: 14.2 LEFT: Peak Systolic Velocity (PSV) cm/sec ----- Left CCA: 186 ----- Left ICA: 96.9 ----- Left ECA: 130 ICA/CCA ratio: .5 LEFT: End Diastole cm/sec ----- Left CCA: 38.3 ----- Left ICA: 30.6 ----- Left ECA: 16.6 VERTEBRALS (direction of flow): Right Vertebral: Antegrade Left Vertebral: Antegrade Rhythm: Normal ODD PIECE CHECKER NOTES: No significant stenosis seen IMPRESSION: Increased systolic velocities in both common and internal carotid arteries could reflect hypertension . The normal ICA/CCA ratios argue against any hemodynamically significant ICA stenosis. Criteria for Assigning % of Stenosis / Diameter reduction (Estimation based on the indirect measurements of the internal carotid artery velocities (ICA PSV). 1. Normal (no stenosis)=ICA PSV < 125 cm/s: ratio < 2.0: ICA EDV<40 cm/s. 2. Less than 50% stenosis=ICA PSV < 125 cm/s: ratio < 2.0: ICA EDV<40 cm/s. 3. 50 to 69% stenosis=ICA PSV of 125 to 230 cm/s: ration 2.0 ? 4.0: ICA EDV 40-100 cm/s. 4. Greater than 70% stenosis to near occlusion= ICA PSV > 230 cm/s: ratio > 4.0: ICA EDV > 100 cm/s. 5. Near occlusion= ICA PSV velocities may be low or undetectable: variable ratio and ICA EDV. 6. Total occlusion=unable to detect flow.
== END | disposition home or self-care (01) ==
LOC: RADUSWWP 14:49
PROVIDERS: ATTEND Internal Medicine
DX: I65.23 Occlusion and stenosis of bilateral carotid arteries (principal)
CPT/HCPCS: 93880

== ENCOUNTER → 2022-08-05 | Outpatient (CLI) | payer OTHER ==
[2022-08-06 02:14] LABS: Basophils # (A) 0.05 X 10*3/uL (0.00-0.10); Basophils % (A) 0.5 %; HCT 38.9 % (39.6-50.0); HGB 13.4 d/dL (12.0-15.0); Lymphocytes # (A) 1.22 X 10*3/uL (0.90-5.00); Lymphocytes % (A) 11.6 %; MCH 31.8 pg (27.0-32.0); MCHC 34.4 d/dL (32.0-37.0); MCV 92.4 FL (80.0-97.0); Mean Platelet Volume 10.6 FL (9.5-12.2); Monocytes # (A) 0.53 X 10*3/uL (0.20-1.00); NRBC Per 100 WBC 0 X 10*3/uL (0.00-0.01); Neutrophils % (A) 81.7 %; Platelet Count 300 X 10*3/uL (140-440); RBC 4.21 X 10*6/uL (4.40-5.60); RDW 12.4 % (11.5-14.5); WBC 10.52 X 10*3/uL (4.50-10.00)
[2022-08-06 02:36] LABS: ALT 24 U/L (10-49); AST 38 U/L (14-35); Albumin 4.7 d/dL (3.8-4.9); Albumin/Globulin Ratio 1.38 Ratio (1.60-3.17); Alkaline Phosphatase 84 U/L (41-126); BUN/Creat Ratio 12.17 Ratio (12.00-20.00); Blood Urea Nitrogen 7.3 mg/dL (9.0-27.0); Calcium 10.2 mg/dL (8.7-10.3); Carbon Dioxide 21.7 mmol/L (21.6-31.8); Chloride 100 mmol/L (96-109); Chol/HDL Ratio 2.57 Ratio; Creatine Kinase 338 U/L (35-257); Globulin 3.4 d/dL (1.6-3.3); Glucose 94 mg/dL (70-110); LDL Cholesterol,Calculated 72.4 mg/dL (0.0-131.0); Magnesium 1.4 mg/dL (1.5-2.4); Potassium 4.2 mmol/L (3.5-5.5); Sodium 140 mmol/L (135-145); Total Bilirubin 0.3 mg/dL (0.3-1.2); Total Protein 8.1 d/dL (6.2-8.2); Uric Acid 7.4 mg/dL (3.7-8.7)
[2022-08-06 02:38] LABS: Erythrocyte Sedimentation Rate 37 mm/Hr (0-20)
== END | disposition home or self-care (01) ==
LOC: LABWHC1 14:40
PROVIDERS: ATTEND Internal Medicine
DX: Z00.00 Encounter for general adult medical examination without abnormal findings (principal); D64.9 Anemia, unspecified; J44.9 Chronic obstructive pulmonary disease, unspecified; I10 Essential (primary) hypertension; E11.65 Type 2 diabetes mellitus with hyperglycemia; E03.9 Hypothyroidism, unspecified; E55.9 Vitamin D deficiency, unspecified; E87.8 Other disorders of electrolyte and fluid balance, not elsewhere classified; E78.5 Hyperlipidemia, unspecified; R80.9 Proteinuria, unspecified
CPT/HCPCS: 36415; 80053; 80061; 82306; 82550; 83036; 83735; 84100; 84153; 84443; 84550; 85025; 85652; 86140

== ENCOUNTER → 2022-11-16 | Outpatient (CLI) | payer OTHER ==
[2022-11-16 10:18] VITALS: BP 154/82; PULSE 90; RESP 16; TEMP 98.8
--- NOTE | 2022-11-16 14:37 | P.PAINPG ---
PQRS Measure Charge Sheet Comment: HISTORY OF PRESENT ILLNESS: 52 yr old male as a referral from Dr Koehler presents today w severe and chronic unspecified myepathy for evaluation. Pt states pain level is provoked at 7 /10 in intensity, constant, localized in the UEs and LEs, sharp in character without shooting pain. Pain is provoked by any movement. Pain is alleviated by medications ([place] 10/325mg #60, Neurontin 300mg #90), repositioning and rest. Oswestry axial pain score at . PMH: OA, Hyperlipidemia, HTN, GERD, Vitamin D Deficiency PSH: Pancreatitis SH: Daily tobacco use, No ETOH abuse, No illicit drug use FH: Mo- HTN. Bro- HTN. Sis- HTN. All: See list Meds: See list REVIEW OF ORGAN SYSTEMS: CONSTITUTIONAL: No fevers or chills. No recent weight loss. NEUROLOGICAL: + numbness and tingling along the distal extremities. No seizure disorders or headaches. MUSCULOSKELETAL: + pain PSYCHIATRIC: Denies current depression or suicidal thoughts. Physical Examinations : Constitutional : Cooperative , not in acute distress . Neurologic : Cranial nerve II to XII intact. No focal neurological deficits. Psychiatric : alert & oriented x 3. Matching mood & appropriate affect. Judgment & insight intact. Musculoskeletal : Cervical Spine Motor strength in the deltoid and biceps: Normal right side. Normal Left side Motor strength biceps and the wrist extensors: Normal right side . Normal left side Motor strength in the triceps muscle: Normal right side. Normal left side Deep tendon reflexes: Normal at the biceps. Normal at Brachioradialis. Normal at triceps Vertebral body tenderness to deep palpation over Cervical facet loading test: positive bilaterally Spurling test: positive bilaterally Neck distraction test: positive bilaterally Marii sign: positive bilaterally Lumbar spine Motor strength lower extremities ,thigh and legs 5/5 Right side , 5/5 Left side Deep tendon reflexes : Normal Knee Jerk. Normal Ankle Jerk Vertebral body tenderness over Roblero Test positive Lumbar facet Loading Test: positive Right / positive Left Range of motion of the lumbar spine Flexion 30 degrees, extension 10 degrees Straight Leg Raise test: Left/ Right positive at degree Marci test: positive right / positive left. Severe tenderness over the Sacroiliac joint on the Right / Left sides Gaenslen test: positive bilaterally Seated flexion test: positive bilaterally. Sacral spine : Severe tenderness over the Sacroiliac joint: right side / left side Range of motion: Flexion of the lumbar spine <60 degrees Range of motion: Extension of the lumbar spine <20 degrees Gaenslen's Test positive Jayy's Test positive Marci test: positive right side / left side Thigh Thrust Test Sacral Thrust Test Imaging: None on file Assessment/ Plan : Lumbar DDD Recommendation of PT x 6wks, lumbar x ray 2 views M51.36 May need additional testing if indicated. All questions answered. I have spent greater than 30 minutes on patient care today. Dr Palma was available by phone for the evaluation of this patient. The time was used to review the medical records including relevant urine studies and Prescription history (MAPs), review of the available imaging, evaluation and examination of the patient, coordination of care with the medical staff and if applicable referring physicians, as well as creation of the medical record PQRS Narrative: Smoking Status Current every day smoker Home Medications: Ambulatory Orders Atorvastatin [Lipitor] 20 mg PO HS 11/16/22 Cholecalciferol [Vitamin D3 (25 Mcg = 1000 Iu)] 25 mcg PO DAILY 11/16/22 Gabapentin 300 mg PO TID 11/16/22 Hydrocodone/Acetaminophen [Hydrocodone/Acetaminophen 10-300 mg] 1 tab PO BID 11/16/22 Latanoprost [Latanoprost 0.005%] 1 drop RIGHT EYE 11/16/22 Metoprolol Succinate [Toprol XL] 50 mg PO DAILY 11/16/22 Omeprazole 20 mg PO 11/16/22 Potassium Chloride ER [K-Dur 10] 10 meq PO 11/16/22 amLODIPine 10 mg PO DAILY 11/16/22 cloNIDine HCL 0.2 PO BID 11/16/22 hydrALAZINE HCL [Apresoline] 100 mg PO 11/16/22 Controlled Substance Measures - Controlled Substance Measures Is patient prescribed a controlled substance at discharge?: No
== END ==
LOC: PNWHC3 08:51
PROVIDERS: ATTEND Specialist
DX: M51.36 Other intervertebral disc degeneration, lumbar region (principal); M47.816 Spondylosis without myelopathy or radiculopathy, lumbar region; M19.90 Unspecified osteoarthritis, unspecified site; E78.5 Hyperlipidemia, unspecified; I10 Essential (primary) hypertension; K21.9 Gastro-esophageal reflux disease without esophagitis; F17.200 Nicotine dependence, unspecified, uncomplicated; Z79.899 Other long term (current) drug therapy; Z88.8 Allergy status to other drugs, medicaments and biological substances
CPT/HCPCS: 99211

== ENCOUNTER → 2022-11-16 | Outpatient (CLI) | payer OTHER ==
--- NOTE | 2022-11-16 10:37 | XR ---
EXAMINATION TYPE: XR lumbar spine 2 or 3V DATE OF EXAM: 11/16/2022 10:17 AM CLINICAL INDICATION:Male, 52 years old with history of Z13.6 SCREENING FOR CARDIOVASCULAR DISORDERS; [facility] COMPARISON: 01/27/2017 TECHNIQUE: XR lumbar spine 2 or 3V - Frontal, lateral and coned in L5-S1 lateral views of the spine. FINDINGS: No evidence of any acute osseous pathology. No evidence of loss of vertebral body height i s seen. There is normal alignment of the lumbar vertebral bodies. Mild scattered disc space narrowing . Multilevel marginal osteophyte formation throughout the visualized spine. There is facet joint arth ropathy throughout the spine. Scattered at least mild neural foraminal stenosis. Atherosclerosis of t he arterial vasculature. IMPRESSION: 1. No acute fracture. 2. Mild multilevel disc degeneration.
== END | disposition home or self-care (01) ==
LOC: RADXRMAIN 09:59
PROVIDERS: ATTEND Physician Assistant Medical
DX: Z13.6 Encounter for screening for cardiovascular disorders (principal); M51.36 Other intervertebral disc degeneration, lumbar region
CPT/HCPCS: 72100